=== PATIENT | female | born 1965 | race African-American/Black ===

== ENCOUNTER 2017-10-09 15:34 | Emergency (ER) | payer OTHER ==
[~2017-10-09] VITALS: Ht 180.3 cm; Wt 86.4 kg
[~2017-10-09 15:34] MED LIST: AMLO-512 PO; LISI10TA PO; POTASSIUM
[2017-10-09 15:52] LABS: GLUCOSE,POINT OF CARE 76 MG/DL (70-110)
[2017-10-09 16:50] LABS: BASOPHILS % (AUTO) 1.2 % (0.0-2.0); EOSINOPHILS % (AUTO) 1.2 % (1.0-6.0); HEMATOCRIT 36.4 % (36-46); HEMOGLOBIN 12.5 g/dL (12.0-16.0); LYMPHOCYTES # (AUTO) 1.3 K/uL (1.0-4.8); LYMPHOCYTES % (AUTO) 19.7 % (22.0-44.0); MEAN CORPUSCULAR HEMOGLOBIN 31.2 pg (26.0-34.0); MEAN CORPUSCULAR HGB CONC 34.5 G/dL (31.0-37.0); MEAN CORPUSCULAR VOLUME 91 fL (80-100); MONOCYTES # (AUTO) 0.5 K/uL (0.1-1.0); MONOCYTES % (AUTO) 7.4 % (2.0-9.0); NEUTROPHILS # (AUTO) 4.8 K/uL (1.8-7.7); NEUTROPHILS % (AUTO) 70.5 % (40.0-70.0); PLATELET COUNT (AUTO) 247 K/uL (150-450); RED BLOOD CELL COUNT(AUTO) 4.02 MIL/uL (4.00-5.20)
[2017-10-09 17:03] LABS: ANION GAP 8 mmol/L (8-16); CALCIUM, TOTAL 8.5 mg/dL (8.8-10.5); CARBON DIOXIDE 31 mmol/L (22-29); CHLORIDE 103 mmol/L (98-107); CREATININE 1.26 mg/dL (0.60-1.30); GLOMERULAR FILTR. RATE CALC 54 mL/min (>60); GLUCOSE,RANDOM 117 mg/dL (70-110); POTASSIUM 3.5 mmol/L (3.5-5.1); SODIUM SERUM 142 mmol/L (136-145); UREA NITROGEN, BLOOD 16 mg/dL (7-18)
[2017-10-09 17:08] LABS: ALANINE AMINOTRANSFERASE 37 U/L (12-78); ALBUMIN 3.5 g/dL (3.4-5.0); ALKALINE PHOSPHATASE 101 U/L (46-116); ASPARTATE AMINOTRANSFERASE 22 U/L (15-37); BILIRUBIN,TOTAL 0.2 mg/dL (0.1-1.0); CREATINE KINASE, TOTAL 44 U/L (26-192); TOTAL PROTEIN, SERUM 7.1 g/dL (6.4-8.2)
[2017-10-09 17:11] LABS: B-TYPE NATRIURETIC PEPTIDE < 5 pg/mL (0-100)
[2017-10-09 17:27] LABS: PROTHROMBIN TIME 10.1 SEC (9.4-11.6)
[2017-10-09] MEDS ORDERED: ONDANSETRON HCL 4 MG/2 ML VIAL IVP ONE (18:00)
[2017-10-09] MEDS ORDERED: SODIUM CHLORIDE 0.9% 1,000 ML IV ONE (18:00)
[2017-10-09 18:33] VITALS: BP 122/88
== END 2017-10-09 18:58 | disposition home or self-care (01) ==
LOC: EMS 15:35
DX: R11.2 Nausea with vomiting, unspecified (principal); R55 Syncope and collapse; I10 Essential (primary) hypertension; F17.210 Nicotine dependence, cigarettes, uncomplicated
CPT/HCPCS: 71045; 80053; 82550; 82962; 83880; 84484; 85025; 85610; 85730; 93005; 96361; 96374; 99285; J2405; J7030

== ENCOUNTER 2022-01-28 14:07 | Emergency (ER) | payer OTHER ==
[~2022-01-28 14:07] MED LIST changes: +AMLO-258 PO; -AMLO-512 PO; -POTASSIUM
[2022-01-28] MEDS ORDERED: NALO4SPR NASAL (14:24)
== END 2022-01-28 19:22 | disposition left against medical advice (07) ==
LOC: EMS 14:08
DX: T40.3X1A Poisoning by methadone, accidental (unintentional), initial encounter (principal); T42.4X1A Poisoning by benzodiazepines, accidental (unintentional), initial encounter; R17 Unspecified jaundice; I10 Essential (primary) hypertension; F17.210 Nicotine dependence, cigarettes, uncomplicated; Z98.51 Tubal ligation status; Z98.890 Other specified postprocedural states; Y92.89 Other specified places as the place of occurrence of the external cause
CPT/HCPCS: 99283; Z7502

== ENCOUNTER 2023-12-15 09:56 | Inpatient (IN) | payer OTHER ==
[~2023-12-15] VITALS: Ht 180.3 cm; Wt 59.0 kg
[~2023-12-15 09:56] MED LIST changes: -AMLO-258 PO; +LEVO-72 PO; -LISI10TA PO
[2023-12-15] MEDS: ACETAMINOPHEN 325 MG TABLET PO ONE (10:50)
[2023-12-15] MEDS ORDERED: LEVE-71 PO (11:16)
[2023-12-15] MEDS ORDERED: MULT-1203 PO (11:16)
[2023-12-15] MEDS ORDERED: DEXA4 PO (11:16)
[2023-12-15] MEDS ORDERED: SENN-376 PO (11:16)
[2023-12-15] MEDS ORDERED: CHOL25TA4 PO (11:16)
[2023-12-15] MEDS ORDERED: DOCU-412 PO (11:16)
[2023-12-15] MEDS ORDERED: DULO20CA71 PO (11:16)
[2023-12-15] MEDS ORDERED: [UNRECOGNIZED DRUG - CODE] PO (11:16)
[2023-12-15] MEDS ORDERED: LIDO1ADH63 TP (11:16)
[2023-12-15] MEDS ORDERED: FERR325T27 PO (11:16)
[2023-12-15] MEDS ORDERED: FAMO20 PO (11:16)
[2023-12-15] MEDS ORDERED: CAPT12.55 PO (11:16)
[2023-12-15] MEDS ORDERED: AMLO-258 PO (11:16)
[2023-12-15] MEDS ORDERED: PROC5TAB54 PO (11:16)
[2023-12-15] MEDS ORDERED: ONDA-104 PO (11:16)
[2023-12-15] MEDS ORDERED: POLY17PO47 PO (11:16)
[2023-12-15] MEDS ORDERED: HYDR-3831 PO (11:16)
[2023-12-15] MEDS ORDERED: OXYC5 PO (11:16)
[2023-12-15 14:01] LABS: COVID AG,FIA SOURCE NASAL SWAB
[2023-12-15 14:03] LABS: HEMATOCRIT 32.4 % (36-46); HEMOGLOBIN 10.3 g/dL (12.0-16.0); LYMPHOCYTES # (AUTO) 1.1 K/uL (1.0-4.8); LYMPHOCYTES % (AUTO) 16.1 % (22.0-44.0); MEAN CORPUSCULAR HEMOGLOBIN 26.3 pg (26.0-34.0); MEAN CORPUSCULAR HGB CONC 31.7 G/dL (31.0-37.0); MEAN CORPUSCULAR VOLUME 83 fL (80-100); MONOCYTES # (AUTO) 0.9 K/uL (0.1-1.0); MONOCYTES % (AUTO) 12.9 % (2.0-9.0); NEUTROPHILS # (AUTO) 4.8 K/uL (1.8-7.7); PLATELET COUNT (AUTO) 196 K/uL (150-450); RED BLOOD CELL COUNT(AUTO) 3.91 MIL/uL (4.00-5.20); RED CELL DISTRIBUTION WIDTH 20.2 % (11.5-14.5)
[2023-12-15 14:11] LABS: ANION GAP 3 mmol/L (8-16); CALCIUM, TOTAL 8.8 mg/dL (8.8-10.5); CARBON DIOXIDE 34 mmol/L (22-29); CHLORIDE 100 mmol/L (98-107); CREATININE 0.66 mg/dL (0.60-1.30); GLOMERULAR FILTR. RATE CALC > 60 mL/min (>60); GLUCOSE,RANDOM 107 mg/dL (70-110); POTASSIUM 4.1 mmol/L (3.5-5.1); SODIUM SERUM 137 mmol/L (136-145); UREA NITROGEN, BLOOD 23 mg/dL (7-18)
[2023-12-15 14:23] LABS: PROTHROMBIN TIME 10.5 SEC (9.4-11.6)
[2023-12-15 14:25] LABS: SARS-COV2 (COVID) ANTIGEN,FIA Negative (Negative)
[2023-12-15] MEDS ORDERED: BISACODYL 10 MG RECTAL RECTAL SUPPOSITORY PR PRN (14:45)
[2023-12-15] MEDS ORDERED: ONDANSETRON HCL 4 MG/2 ML VIAL IVP PRN (14:45)
[2023-12-15] MEDS ORDERED: LORazepam 2 MG/ML VIAL IVP PRN (14:45)
[2023-12-15] MEDS ORDERED: MAGNESIUM HYDROXIDE SUSPENSION 30 ML UDCUP PO PRN (14:45)
[2023-12-15] MEDS ORDERED: ACETAMINOPHEN 325 MG TABLET PO PRN (14:45)
[2023-12-15 17:00] VITALS: BP 129/97; PULSE 118; PULSE 90; RESP 13; TEMP 98.7
[2023-12-15 20:00] VITALS: BP 135/86; PULSE 102; RESP 11; TEMP 98.6
[2023-12-15] MEDS: LevETIRAcetam 500 MG TABLET PO SCH (20:05)
[2023-12-15] MEDS: DOCUSATE SODIUM 100 MG CAPSULE PO SCH (20:05)
[2023-12-15] MEDS: ETHYL ALCOHOL 62% ANTISEPTIC NASAL SANITIZER 0.6 ML AMPUL NASAL SCH (20:39)
[2023-12-15] MEDS: CHLORHEXIDINE GLUCONATE 2% TOWELETTE [2'S/6'S] TP SCH (22:03)
[2023-12-16] VITALS: BP 121/95; PULSE 102; PULSE 103; RESP 12; TEMP 98
[2023-12-16 04:00] VITALS: BP 108/85; PULSE 108; RESP 12; TEMP 98.2
[2023-12-16 05:33] LABS: BASOPHILS % (AUTO) 0.3 % (0.0-2.0); HEMATOCRIT 31.4 % (36-46); LYMPHOCYTES # (AUTO) 0.9 K/uL (1.0-4.8); LYMPHOCYTES % (AUTO) 16.8 % (22.0-44.0); MEAN CORPUSCULAR HEMOGLOBIN 26.4 pg (26.0-34.0); MEAN CORPUSCULAR HGB CONC 31.9 G/dL (31.0-37.0); MEAN CORPUSCULAR VOLUME 83 fL (80-100); MONOCYTES # (AUTO) 0.7 K/uL (0.1-1.0); NEUTROPHILS # (AUTO) 3.8 K/uL (1.8-7.7); NEUTROPHILS % (AUTO) 68.9 % (40.0-70.0); PLATELET COUNT (AUTO) 192 K/uL (150-450); RED BLOOD CELL COUNT(AUTO) 3.79 MIL/uL (4.00-5.20); RED CELL DISTRIBUTION WIDTH 20.7 % (11.5-14.5); WHITE BLOOD COUNT (AUTO) 5.6 K/uL (4.5-11.0)
[2023-12-16 05:43] LABS: ANION GAP 5 mmol/L (8-16); CARBON DIOXIDE 32 mmol/L (22-29); CHLORIDE 101 mmol/L (98-107); GLOMERULAR FILTR. RATE CALC > 60 mL/min (>60); GLUCOSE,RANDOM 90 mg/dL (70-110); POTASSIUM 3.7 mmol/L (3.5-5.1); SODIUM SERUM 138 mmol/L (136-145); UREA NITROGEN, BLOOD 17 mg/dL (7-18)
[2023-12-16 08:00] VITALS: BP 114/85; PULSE 113; RESP 16; TEMP 98.9
[2023-12-16] MEDS: DEXAMETHASONE 4 MG TABLET PO SCH (09:14)
[2023-12-16] MEDS: AmLODIPine BESYLATE 5 MG TABLET PO SCH (09:14)
[2023-12-16] MEDS: PANTOPRAZOLE SODIUM 40 MG/VIAL IVP SCH (09:14)
[2023-12-16 12:00] VITALS: BP 129/89; PULSE 117; RESP 11; TEMP 98.5
[2023-12-16 16:00] VITALS: BP 119/90; PULSE 115; RESP 10; TEMP 97.9
[2023-12-16 20:00] VITALS: BP 113/84; PULSE 107; PULSE 78; RESP 11; TEMP 98.1
[2023-12-17] VITALS: BP 124/83; PULSE 108; RESP 12; TEMP 98.3
[2023-12-17 04:00] VITALS: BP 116/85; PULSE 100; RESP 11; TEMP 98.3
[2023-12-17 05:43] LABS: BASOPHILS % (AUTO) 0.4 % (0.0-2.0); EOSINOPHILS % (AUTO) 0.8 % (1.0-6.0); HEMATOCRIT 30.2 % (36-46); HEMOGLOBIN 9.6 g/dL (12.0-16.0); LYMPHOCYTES % (AUTO) 11.9 % (22.0-44.0); MEAN CORPUSCULAR HEMOGLOBIN 26.5 pg (26.0-34.0); MEAN CORPUSCULAR HGB CONC 31.7 G/dL (31.0-37.0); MEAN CORPUSCULAR VOLUME 84 fL (80-100); MONOCYTES # (AUTO) 0.7 K/uL (0.1-1.0); MONOCYTES % (AUTO) 9.1 % (2.0-9.0); NEUTROPHILS # (AUTO) 6.3 K/uL (1.8-7.7); NEUTROPHILS % (AUTO) 77.8 % (40.0-70.0); PLATELET COUNT (AUTO) 183 K/uL (150-450); RED CELL DISTRIBUTION WIDTH 20.3 % (11.5-14.5)
[2023-12-17 05:55] LABS: ANION GAP 3 mmol/L (8-16); CALCIUM, TOTAL 8.9 mg/dL (8.8-10.5); CARBON DIOXIDE 31 mmol/L (22-29); CHLORIDE 101 mmol/L (98-107); CREATININE 0.55 mg/dL (0.60-1.30); GLOMERULAR FILTR. RATE CALC > 60 mL/min (>60); GLUCOSE,RANDOM 105 mg/dL (70-110); SODIUM SERUM 135 mmol/L (136-145); UREA NITROGEN, BLOOD 17 mg/dL (7-18)
[2023-12-17 08:00] VITALS: BP 111/80; PULSE 84; RESP 16; TEMP 98.1
[2023-12-17] MEDS: OxyCODONE HCL/ACETAMINOPHEN 5-325 MG TABLET PO PRN (17:43)
[2023-12-17 20:00] VITALS: BP 109/81; PULSE 95; RESP 16; TEMP 98.4
[2023-12-18] VITALS (7 sets, daily range): BP systolic 113–144; BP diastolic 81–95; PULSE 78–95; RESP 16–19; TEMP 97.6–98
[2023-12-18] MEDS: OxyCODONE HCL/ACETAMINOPHEN 5-325 MG TABLET PO PRN (10:21)
[2023-12-18 13:06] LABS: MAGNESIUM 1.5 mg/dL (1.80-2.40); PHOSPHORUS 3.3 mg/dL (2.5-4.9)
[2023-12-19 03:54] VITALS: BP 129/72; PULSE 78; RESP 18; TEMP 98.5
[2023-12-19 05:57] LABS: BASOPHILS % (AUTO) 0.2 % (0.0-2.0); EOSINOPHILS % (AUTO) 0.3 % (1.0-6.0); HEMATOCRIT 27.4 % (36-46); HEMOGLOBIN 8.7 g/dL (12.0-16.0); LYMPHOCYTES # (AUTO) 0.9 K/uL (1.0-4.8); LYMPHOCYTES % (AUTO) 7.7 % (22.0-44.0); MEAN CORPUSCULAR HEMOGLOBIN 26.5 pg (26.0-34.0); MEAN CORPUSCULAR HGB CONC 31.6 G/dL (31.0-37.0); MEAN CORPUSCULAR VOLUME 84 fL (80-100); MONOCYTES % (AUTO) 7.8 % (2.0-9.0); NEUTROPHILS # (AUTO) 10.3 K/uL (1.8-7.7); PLATELET COUNT (AUTO) 186 K/uL (150-450); RED BLOOD CELL COUNT(AUTO) 3.27 MIL/uL (4.00-5.20); RED CELL DISTRIBUTION WIDTH 20.4 % (11.5-14.5); WHITE BLOOD COUNT (AUTO) 12.3 K/uL (4.5-11.0)
[2023-12-19 06:05] LABS: ANION GAP 6 mmol/L (8-16); CALCIUM, TOTAL 8.5 mg/dL (8.8-10.5); CARBON DIOXIDE 30 mmol/L (22-29); CHLORIDE 101 mmol/L (98-107); GLOMERULAR FILTR. RATE CALC > 60 mL/min (>60); GLUCOSE,RANDOM 87 mg/dL (70-110); POTASSIUM 3.8 mmol/L (3.5-5.1); SODIUM SERUM 137 mmol/L (136-145); UREA NITROGEN, BLOOD 14 mg/dL (7-18)
[2023-12-19 07:42] VITALS: BP 140/97; PULSE 101; RESP 18; TEMP 98.2
[2023-12-19] MEDS: MULTIVITAMINS WITH MINERALS, THERAPEUTIC TABLET PO SCH (08:23)
[2023-12-19] MEDS: THIAMINE 100 MG TABLET PO SCH (08:24)
[2023-12-19 10:51] VITALS: BP 107/76; PULSE 98; RESP 18; TEMP 97.7
[2023-12-19] MEDS ORDERED: AMLO-257 PO (12:43)
[2023-12-19] MEDS ORDERED: DEXA2 PO (12:44)
[2023-12-19] MEDS ORDERED: FAMO20 PO (12:45)
[2023-12-19] MEDS ORDERED: LEVE-71 PO (12:45)
== END 2023-12-19 14:02 | disposition home health service (06) | DRG 57 ==
LOC: EMS 09:56 → EDH 14:39 → ICU 16:47 → 5S 12-17 12:20
PROVIDERS: ADMIT Internal Medicine; ATTEND Internal Medicine
DX: S06.300A Unspecified focal traumatic brain injury without loss of consciousness, initial encounter (principal); G93.6 Cerebral edema; E43 Unspecified severe protein-calorie malnutrition; C78.5 Secondary malignant neoplasm of large intestine and rectum; G93.89 Other specified disorders of brain; I10 Essential (primary) hypertension; Z20.822 Contact with and (suspected) exposure to COVID-19; W18.39XA Other fall on same level, initial encounter; Z82.49 Family history of ischemic heart disease and other diseases of the circulatory system; Z85.048 Personal history of other malignant neoplasm of rectum, rectosigmoid junction, and anus; Z85.43 Personal history of malignant neoplasm of ovary; Z87.891 Personal history of nicotine dependence; Z90.49 Acquired absence of other specified parts of digestive tract; Z93.3 Colostomy status; Y93.89 Activity, other specified; Y92.89 Other specified places as the place of occurrence of the external cause; Y99.8 Other external cause status; Z68.1 Body mass index [BMI] 19.9 or less, adult
CPT/HCPCS: 70450; 70551; 72125; 80048; 83735; 84100; 85025; 85610; 85730; 86850; 86900; 86901; 87081; 87481; 92523; 93005; 93970; 97116; 97163; 97167; 97530; 97535; 99285; C9113; J8540